=== PATIENT | female | born 1985 | race Caucasian/White ===

== ENCOUNTER 2016-06-28 20:05 | Emergency (ER) | payer OTHER ==
[~2016-06-28] VITALS: Ht 152.4 cm; Wt 87.7 kg
[2016-06-28 20:22] VITALS: BP 124/83; PULSE 81; RESP 16; O2SAT 97
--- NOTE | 2016-06-28 20:49 | ED.REPORT ---
HPI-Dental/Mouth Prob Date of Service June 28, 2016 ED Provider: Osei Sterling DO A 31 year old female with a history of asthma presents to the ED complaining of dental pain. The pt noticed inflammation of her gums recently in addition to a small bright red area, a "bad taste" in her mouth, and headache. The pt has a dental appointment in three days and is concerned of an abscess or infection. Nursing Notes Stated Complaint: DENTAL ABSCESS Chief Complaint: Dental Nursing Notes Reviewed: Yes Allergies: Coded Allergies: hydrocodone bitartrate (Verified Allergy, Unknown, 06/28/16) hydromorphone HCl (Verified Allergy, Unknown, 06/28/16) oxycodone HCl (Verified Allergy, Unknown, 06/28/16) Uncoded Allergies: OPIATES (Allergy, Unknown, 06/28/16) General Time Seen by MD: 20:48 Chief Complaint Tooth pain Hx Obtained From: Patient Arrived By: Walk-in Recent Healthcare: No recent hospitalization, Recent doctor visit Similar Sx Previous: No Past Medical History Past Medical History asthma Past Surgical History right knee Smoking History Unknown if Ever Smoker Social History Other Social History: Good social support Ambulatory Status Independent Review of Systems Review of Systems Note: area of redness "bad taste" Ears / Nose / Throat: Reports: Toothache Respiratory: Denies: Non-productive cough, Shortness of breath GI: Denies: Abdominal pain Complete sys rev & neg: except as marked. Neurologic: Reports: Headache Physical Exam Initial Vital Signs Vital Signs (First) Date Time Temp Pulse Resp B/P Pulse Ox O2 Delivery O2 Flow Rate FiO2 06/28/16 20:22 37.0 81 16 124/83 97 Room Air Initial VS: Reviewed ENT: Airway patent, Mucous membranes moist right maxillary buccal cellulitis Neck: Atraumatic, Supple, Full range of motion General/Constitutional: Awake, Alert Head / Eyes: Atraumatic, Normocephalic, PERRL, EOMI Respiratory / Chest: Atraumatic, Breath sounds NL, Breath sounds = bilat, No respiratory distress Cardiovascular: Heart rate NL, Regular rhythm, Heart sounds NL Neurologic: Oriented X3, Speech NL, No motor deficits, No sensory deficits Abdomen: Atraumatic, Soft, Non-tender Back: Atraumatic, Full range of motion Upper Extremity / MS: Atraumatic, Full range of motion Lower Extremity / Pelvis / MS: Atraumatic, Full range of motion Skin: Color NL, No rash, Warm, Dry Psychiatric: Affect NL, Mood NL Interpretation & Diagnostics Pulse Oximetry Interpretation Pulse Oximetry Interpretation: 97% on room air Pulse Oximetry: Pulse Ox normal Re-Eval/Medical Decision Source of Hx: Old records Re-Evaluation/Progress : Time of Eval: 20:48 Patient Status: Condition improved Re-Evaluation/Progress Note: Pt informed of her diagnosis and the plan for discharge during the initial interview. The pt understands and agrees with the plan. All questions are addressed at this time. Counseled Regarding: Diagnosis, Need for follow-up, When/why to return to ED Discharge & Departure Primary Impression: Toothache Additional Impression: Gingivitis Disposition: Home Patient Instructions: Dental Abscess (ED) Additional Instructions: Augmentin twice daily for 5 days. Naprosyn twice daily as needed for pain. Keep your dental follow-up. Return if any problems or new worsening symptoms. Return if any facial swelling. Referrals: Loyda Bianchi DO (PCP) [facility] Portions of this note were transcribed by Lisa Torres. I, Dr. Sterling personally performed the history, physical exam and medical decision-making; I reviewed and confirmed the accuracy of the information in the transcribed note. Signed by: [facility] Wong, 06/28/16 and [id number]. copies to: Loyda Bianchi Todd P DO June 28, 2016 20:49 LISA TORRES June 28, 2016 21:16
[2016-06-28] MEDS ORDERED: Amoxicillin-Clav 875-125 mg Tablet PO ONE (21:10)
[2016-06-28 22:06] VITALS: BP 124/83; PULSE 81; RESP 16; O2SAT 97
== END 2016-06-28 22:06 | disposition home or self-care (01) ==
LOC: SED 20:05
DX: K08.89 Other specified disorders of teeth and supporting structures (principal); K05.10 Chronic gingivitis, plaque induced; Z88.5 Allergy status to narcotic agent
CPT/HCPCS: 96372; 99283; J1885